=== PATIENT | female | born 1990 | race Caucasian/White ===

== ENCOUNTER 2018-07-16 06:46 | Inpatient (IN) | payer OTHER ==
[2018-07-16] MEDS ORDERED: AMPICILLIN SODIUM 2 GM VIAL ONE (07:57)
[2018-07-16] MEDS ORDERED: DEXTROSE 5%-LACTATED RINGERS 1,000 ML IV SCH (08:00)
[2018-07-16] MEDS ORDERED: AMPICILLIN - 2 GM in SODIUM CHLORIDE 100 ML IVPB ONE (08:02)
[2018-07-16 08:26] LABS: BASO % 0.3 % (0-2.0); EOS % 0.7 % (0-4.5); HEMATOCRIT 37.1 % (32.4-45.2); HEMOGLOBIN 12.7 GM/dL (10.7-15.3); LYMPH % 17.9 % (8-40); MCH 29.2 pg (25.7-33.7); MCHC 34.3 g/dl (32.0-36.0); MEAN PLT VOLUME 9.7 fl (7.5-11.1); MONO % 7.6 % (3.8-10.2); NEUT % 73.5 % (42.8-82.8); PLATELET COUNT 200 K/MM3 (134-434); RBC 4.36 M/mm3 (3.60-5.2); RDW 13.9 % (11.6-15.6); WHITE BLOOD COUNT 9.7 K/mm3 (4.0-10.0)
--- NOTE | 2018-07-16 08:31 | HP ---
Past Medical History - Primary Care Physician PCP:: Gabi Sin - Admission Chief Complaint: 28 yrs , 38.6 weeks brought by ambulence due to SROM , light green color since 6.00AM. no UC felt History of Present Illness: [facility] [place] [facility] , requested pt states her course was uneventful .alltests were normal. she was given yeast infection treatment, vaginal cream for 3 days History Source: Patient Limitations to Obtaining History: No Limitations - Past Medical History HAY BALER: No: Migraine, Seizure Cardiovascular: No: HTN, Murmur Pulmonary: No: Asthma Gastrointestinal: Yes: Other (denies) Hepatobiliary: Yes: Other (denies) Renal/: Yes: Other (denies) ...: 2 ...Spon : 1 (2013-1st trimester d&c was done ) ...EDC by [facility]: 07/24/18 (38.6 weeks ) Heme/Onc: Yes: Other (unknown) Psych: No: Addictions, Anxiety, Bipolar, Depression, Panic, Psychosis, Schizophrenia, Other - Past Surgical History Past Surgical History: Yes: None Hx Myomectomy: No Hx Transabdominal Cerclage: No - Alcohol/Substance Use History of Substance Use: reports: None Home Medications - Allergies Allergies/Adverse Reactions: Allergies Allergy/AdvReac Type Severity Reaction Status Date / Time shellfish derived Allergy Mild Itching Verified 07/16/18 07:49 Physical Exam - Maternity Vital Signs: Selected Entries 07/16/18 07/16/18 07:50 08:00 Temperature 99.1 F Pulse Rate 77 Respiratory 20 Rate Blood Pressure 123/69 Weight 240 lb Constitutional: Yes: Well Nourished, Obese Eyes: Yes: WNL HENT: Yes: WNL Neck: Yes: WNL Cardiovascular: Yes: WNL, Regular Rate and Rhythm Lungs: Clear to auscultation Breast(s): Yes: WNL. No: Mass - Abdominal Exam/OB Fundal Height: 40 Number of Fetuses: Single Presentation: Vertex Contractions: No Regularity: Irregular (3-5-6 min) Intensity: Mild Monitor Mode: External Heart Rate (range): 120-130 Heart Rate Location: [facility] Category: I Accelerations: Non-Uniform Decelerations: None - Vaginal Exam/OB Vaginal Bleediing: No Dilatation (cm): 1-2 Effacement (%): 70 Amniotic Membrane Status: Ruptured Nitrazine Test: Positive Amniotic Fluid: Yes: Meconium Stained Meconium: Light Presentation: Vertex/Position Station: -2 - Physical Exam Musculoskeletal: Yes: WNL Extremities: Yes: WNL. No: Calf Tenderness Edema: LLE: 1+, RLE: 1+ Integumentary: Yes: Tattoos Deep Tendon Reflex Grade: Normal +2 ...Motor Strength: WNL Psychiatric: Yes: WNL, Alert, Oriented Problem List - Problems (1) with 38 completed weeks gestation Code(s): Z3A.38 - 38 WEEKS GESTATION OF (2) SROM (spontaneous rupture of membranes) Code(s): CQJ7873 - (3) with care elsewhere Code(s): Z34.90 - ENCNTR FOR SUPRVSN OF NORMAL , UNSP, UNSP TRIMESTER Qualifiers: Trimester: unspecified trimester Qualified Code(s): Z34.90 - Encounter for supervision of normal , unspecified, unspecified trimester Assessment/Plan 28 yrs , gbs unknown , srom light meconium stained , irregular uc plan GBS prophylaxis with ampicillin trial of vaginal delivery . I handed over care of labor management to Dr Johnson
[2018-07-16 08:40] LABS: ANION GAP 8 MMOL/L (8-16); BLOOD UREA NITROGEN 13 mg/dL (7-18); CALCIUM 8.4 mg/dL (8.5-10.1); CHLORIDE 105 mmol/L (98-107); CO2 24 mmol/L (21-32); CREATININE 0.7 mg/dL (0.55-1.3); GLUCOSE,RANDOM 115 mg/dL (74-106); POTASSIUM 3.9 mmol/L (3.5-5.1); SODIUM 137 mmol/L (136-145)
[2018-07-16 08:43] LABS: INR 0.87 (0.83-1.09); PROTHROMBIN TIME (PATIENT) 10.3 SEC (9.7-13.0)
[2018-07-16 08:46] LABS: ACTIVATED PTT 25.8 SECONDS (25.2-36.5)
[2018-07-16 09:12] VITALS: BMI 41.1
--- NOTE | 2018-07-16 09:38 | PN ---
Progress Note, Labor Vaginal Exam #1 Heart Rate (range): Cat I Dilatation: 2 Effacement (%): 50 Amniotic Membrane Status: Intact Presentation: Vertex/Position Station: -2 Remarks: Assuming care of this patient. Jenn on her own, cervix now 50/2/-2 FHT non reactive still Will cont to closely follow Jade Johnson MD
[2018-07-16 10:55] LABS: COCAINE, UR NEGATIVE ng/ml (CUTOFF=300); METHADONE, UR NEGATIVE ng/ml (CUTOFF=300); OPIATES, URI NEGATIVE ng/ml (CUTOFF=300); PHENCYCLIDINE,URINE NEGATIVE ng/ml (CUTOFF=25); URINE AMPHETAMINES NEGATIVE ng/ml (CUTOFF=500); URINE BARBITURATES NEGATIVE ng/ml (CUTOFF=200); URINE BENZODIAZEPINES NEGATIVE ng/ml (CUTOFF=200)
--- NOTE | 2018-07-16 11:25 | PN ---
Progress Note, Labor Vaginal Exam #2 Labor Exam Date: 07/16/18 Labor Exam Time: 11:24 Heart Rate (range): Cat I Dilatation: 3 Effacement (%): 70 Amniotic Membrane Status: Ruptured Presentation: Vertex/Position Station: -3 Remarks: Unchanged exam Still latent labor Amp x 2 given Consider pitocin augmentation Jade Johnson MD
--- NOTE | 2018-07-16 11:35 | PN ---
Progress Note, Labor Vaginal Exam #2 Labor Exam Date: 07/16/18 Labor Exam Time: 11:30 Heart Rate (range): Cat I Dilatation: 3 Effacement (%): 50 Amniotic Membrane Status: Ruptured Presentation: Vertex/Position Station: -2 Remarks: Cat I tracing Making progress, withhold augmentation at this time Anticipate JERRY Johnson MD
[2018-07-16] MEDS ORDERED: BUTORPHANOL TARTRATE 1 MG/ML VIAL IVPB ONE (11:55)
[2018-07-16] MEDS ORDERED: PROMETHAZINE HCL 25 MG/1 ML VIAL IVPB ONE (11:56)
[2018-07-16] MEDS ORDERED: AMPICILLIN SODIUM 1 GM VIAL ONE ×3 (11:57→20:15)
[2018-07-16] MEDS: AMPICILLIN - 1 GM in SODIUM CHLORIDE 100 ML IVPB SCH ×3 (12:05→20:00)
[2018-07-16] MEDS ORDERED: BUTORPHANOL TARTRATE 1 MG/ML VIAL ONE ×2 (15:16)
[2018-07-16] MEDS ORDERED: PROMETHAZINE HCL 25 MG/1 ML VIAL ONE (15:16)
--- NOTE | 2018-07-16 17:47 | PN ---
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
[2018-07-16] MEDS: ELECTROLYTE-148 SOLN 1,000 ML IV SCH (18:00)
[2018-07-16] MEDS ORDERED: OXYTOCIN 30 UNITS in 0.9% NS 30 UNIT/500 ML INFUS.BAG IVPB ONE (18:02)
[2018-07-16] MEDS: OXYTOCIN 30 UNITS in 0.9% NS 30 UNIT/500 ML INFUS.BAG IVPB SCH (18:05)
[2018-07-16] MEDS ORDERED: BUPIVACAINE HCL/PF 0.25% (2.5MG/ML) 10 ML VIAL ONE (19:18)
[2018-07-16] MEDS ORDERED: FENTANYL/BUPIVACAINE/NS/PF - PCEA - 50 ML DISP.SYRIN EP ONE (19:19)
[2018-07-16] MEDS ORDERED: NALOXONE HCL 0.4 MG/ML VIAL IVPUSH PRN (19:36)
[2018-07-16] MEDS ORDERED: FENTANYL/BUPIVACAINE/NS/PF - PCEA - 50 ML DISP.SYRIN EP SCH (19:45)
--- NOTE | 2018-07-16 19:57 | PN ---
Progress Note, Labor Vaginal Exam #4 Labor Exam Date: 07/16/18 Labor Exam Time: 19:56 Heart Rate (range): Cat I Dilatation: 4 Effacement (%): 90 Amniotic Membrane Status: Ruptured Presentation: Vertex/Position Station: -2 Remarks: Unchanged. Increase pitocin, only at 2mu Will check in one hour, if unchanged, place IUPC and increase pitocin to adequacy Jade Johnson MD
--- NOTE | 2018-07-16 21:20 | PN ---
Progress Note, Labor Vaginal Exam #5 Labor Exam Date: 07/16/18 Heart Rate (range): Cat II Dilatation: 4-5 Effacement (%): 100 Amniotic Membrane Status: Intact Presentation: Vertex/Position Station: -1 Remarks: Difficulty with monitoring during ctx, ? variables vs early decelerations. FSE applied IUPC applied given lack of significant change since 3pm. Will titrate pitocin to adequacy Discussed if no significant change within the next 4 hours despite pitocin, we discussed potential for Delivery Cont to monitor closely Anticipate JERRY Johnson MD
--- NOTE | 2018-07-16 23:19 | PN ---
Progress Note, Labor Vaginal Exam #5 Labor Exam Date: 07/16/18 Labor Exam Time: 23:17 Heart Rate (range): Cat I Dilatation: 10 Effacement (%): 100 Amniotic Membrane Status: Intact Station: 0 Remarks: FHT with one deceleration after 4 ctx, improved thereafter Continue current management Will start pushing in one hour Jade Johnson MD
--- NOTE | 2018-07-16 23:24 | PN ---
Progress Note, Labor Vaginal Exam #6 Labor Exam Date: 07/16/18 Labor Exam Time: 23:23 Heart Rate (range): Cat I Dilatation: 10 Effacement (%): 100 Amniotic Membrane Status: Ruptured Presentation: Vertex/Position Station: +1 Remarks: Pt comfortable Will start pushing within the hour Cat I tracing Anticipate JERRY Johnson MD
[2018-07-16] MEDS ORDERED: OXYTOCIN 20 UNITS in 0.9% NS 20 UNIT/1,000 ML INFUS.BAG IV ONE (23:25)
[2018-07-17] MEDS ORDERED: BISACODYL 10 MG SUPP.RECT RC PRN (00:24)
[2018-07-17] MEDS ORDERED: METHYLERGONOVINE MALEATE 0.2 MG/1 ML AMP IM PRN (00:24)
[2018-07-17] MEDS ORDERED: BENZOCAINE 20% 57 GM BOTTLE TP PRN (00:24)
[2018-07-17] MEDS ORDERED: WITCH HAZEL 50% (TUCKS) 40 PAD/JAR PAD TP PRN (00:24)
[2018-07-17] MEDS ORDERED: BENZOCAINE 28 GM HEMORRHOIDAL OINTMENT TP PRN (00:24)
--- NOTE | 2018-07-17 00:24 | PN ---
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 Epidural anesthesia. 40 weeks gestation. Spontaneous delivery of anterior shoulder. placed on maternal abdomen. FSE removed. Cord clamped and cut. Apgars 9/9. Weight pending. Spontaneous delivery of intact placenta with 3VC. Fundus firm. Perineum inspected, midline first degree laceration repaired with 3-0 vicryl. EBL 250. Mother and baby doing well. Jade Johnson MD
[2018-07-17] MEDS ORDERED: OXYTOCIN 20 UNITS in 0.9% NS 20 UNIT/1,000 ML INFUS.BAG IV SCH (01:00)
[2018-07-17] MEDS: AMPICILLIN - 1 GM in SODIUM CHLORIDE 100 ML IVPB SCH (01:20)
[2018-07-17] MEDS ORDERED: OXYTOCIN 20 UNITS in 0.9% NS 20 UNIT/1,000 ML INFUS.BAG IV ONE (02:03)
[2018-07-17] MEDS: ACETAMINOPHEN 325 MG TABLET (FP) PO PRN ×4 (02:56→17:34)
[2018-07-17] MEDS: IBUPROFEN 600 MG TABLET (FP) PO PRN ×4 (02:57→17:34)
[2018-07-17] MEDS: OXYTOCIN 30 UNITS in 0.9% NS 30 UNIT/500 ML INFUS.BAG IVPB SCH (20:38)
[2018-07-17] MEDS: ELECTROLYTE-148 SOLN 1,000 ML IV SCH (20:38)
[2018-07-18] MEDS: IBUPROFEN 600 MG TABLET (FP) PO PRN ×3 (01:13→21:31)
[2018-07-18] MEDS: ACETAMINOPHEN 325 MG TABLET (FP) PO PRN ×3 (01:13→21:30)
--- NOTE | 2018-07-18 06:25 | PN ---
Post Progress Note - Subjective Subjective: c/o pain in upper body chest, arms & upper abdomen , posible due to pushing muscular pain . c/o uterine cramps Post Day: 1 Type of Delivery: Vital Signs: Vital Signs Temperature 98.1 F 07/17/18 22:00 Pulse Rate 80 07/17/18 22:00 Respiratory Rate 18 07/17/18 22:00 Blood Pressure 111/60 07/17/18 22:00 O2 Sat by Pulse Oximetry (%) 100 07/17/18 01:15 Breast Exam: Yes: Soft, Other (attempting BF, no milk yet , Bottle feeding as well ). No: Engorged Uterus: Yes: Fundus Firm, Fundus below umbilicus, Non-tender, Other (obese abdomen ) Lochia: Yes: Rubra Lochia, amount: Moderate Extremities: Yes: Calves non-tender, Edema Perineum: Yes: Episiotomy (perinel soreness) Activity: Ambulating - Labs Labs: CBC WBC 9.7 K/mm3 (4.0-10.0) 07/16/18 07:40 RBC 4.36 M/mm3 (3.60-5.2) 07/16/18 07:40 Hgb 12.7 GM/dL (10.7-15.3) 07/16/18 07:40 Hct 37.1 % (32.4-45.2) 07/16/18 07:40 MCV 85.0 fl (80-96) 07/16/18 07:40 MCH 29.2 pg (25.7-33.7) 07/16/18 07:40 MCHC 34.3 g/dl (32.0-36.0) 07/16/18 07:40 RDW 13.9 % (11.6-15.6) 07/16/18 07:40 Plt Count 200 K/MM3 (134-434) 07/16/18 07:40 MPV 9.7 fl (7.5-11.1) 07/16/18 07:40 Absolute Neuts (auto) 7.1 K/mm3 (1.5-8.0) 07/16/18 07:40 Neutrophils % 73.5 % (42.8-82.8) 07/16/18 07:40 Lymphocytes % 17.9 % (8-40) 07/16/18 07:40 Monocytes % 7.6 % (3.8-10.2) 07/16/18 07:40 Eosinophils % 0.7 % (0-4.5) 07/16/18 07:40 Basophils % 0.3 % (0-2.0) 07/16/18 07:40 Nucleated RBC % 0 % (0-0) 07/16/18 07:40 Problem List - Problems (1) with 38 completed weeks gestation Code(s): Z3A.38 - 38 WEEKS GESTATION OF (2) SROM (spontaneous rupture of membranes) Code(s): GHE1249 - (3) with care elsewhere Code(s): Z34.90 - ENCNTR FOR SUPRVSN OF NORMAL , UNSP, UNSP TRIMESTER Qualifiers: Trimester: unspecified trimester Qualified Code(s): Z34.90 - Encounter for supervision of normal , unspecified, unspecified trimester (4) Normal vaginal delivery Code(s): O80 - ENCOUNTER FOR FULL-TERM UNCOMPLICATED DELIVERY (5) Encounter for assessment Code(s): Z39.2 - ENCOUNTER FOR ROUTINE FOLLOW-UP Assessment/Plan stable mobilise the body , deep breathing . pp cbc today discharge tomorrow.
[2018-07-18 07:27] LABS: BASO % 0.3 % (0-2.0); EOS % 0.9 % (0-4.5); HEMATOCRIT 32.5 % (32.4-45.2); HEMOGLOBIN 10.9 GM/dL (10.7-15.3); LYMPH % 24.6 % (8-40); MCH 28.3 pg (25.7-33.7); MCHC 33.5 g/dl (32.0-36.0); MEAN CELL VOLUME 84.5 fl (80-96); MEAN PLT VOLUME 8.9 fl (7.5-11.1); MONO % 9.6 % (3.8-10.2); NEUT % 64.6 % (42.8-82.8); PLATELET COUNT 156 K/MM3 (134-434); RBC 3.84 M/mm3 (3.60-5.2); RDW 14.3 % (11.6-15.6); WHITE BLOOD COUNT 11.4 K/mm3 (4.0-10.0)
[2018-07-18] MEDS ORDERED: SENNOSIDES/DOCUSATE COMBO (SENNA PLUS) TABLET (UD) PO PRN (22:00)
[2018-07-19 08:41] VITALS: BP 124/75; PULSE 67; TEMP 98.3
--- NOTE | 2018-07-19 10:04 | DS ---
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 sutures intact, epi wound healing perineal soreness) Breast(s): Yes: WNL (BF, breast not engorged) Musculoskeletal: Yes: WNL, Other (upper body pain less today , feeling better by doing stretches) Extremities: Yes: WNL. No: Calf Tenderness Edema: LLE: 1+, RLE: 1+ Integumentary: Yes: WNL, Tattoos Neurological: Yes: WNL ...Motor Strength: WNL Psychiatric: Yes: WNL Labs: CBC, BMP 07/18/18 07:00 07/16/18 07:40 Delivery - Delivery Vaginal Delivery: Spontaneous Type of Anesthesia: Epidural Episiotomy/Laceration: Midline, 1st degree EBL (cc): 250 Delivery, Single - Stages of Labor Date 1st Stage Initiatied: 07/16/18 Time 1st Stage Initiated: 15:20 Date 2nd Stage Initiated: 07/16/18 Time 2nd Stage Initiated: 23:40 Date of Delivery: 07/17/18 Time of Delivery: 00:10 Time Placenta Delivered: 00:14 Placenta: Yes: Spontaneous - Condition of Infant Molding 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 discharge today Discharge Summary Reason For Visit: LABOR Current Active Problems Encounter for assessment (Acute) Normal vaginal delivery (Acute) with 38 completed weeks gestation (Acute) with care elsewhere (Acute) SROM (spontaneous rupture of membranes) (Acute) Condition: Stable - Instructions Diet, Activity, Other Instructions: Regular Diet Referrals: Richelle Johnson MD [Staff Physician] - Disposition: HOME - Home Medications Comprehensive Discharge Medication List: Ambulatory Orders Calcium Carbonate [Calcium] 200 mg PO DAILY 07/16/18 Folic Acid 1 mg PO DAILY 07/16/18 Prenat 115/Iron Fum/Folic/Dss [ 19 Tablet] 1 tab PO DAILY 07/16/18 Ibuprofen 600 mg PO Q6H PRN #30 tablet 07/18/18
== END 2018-07-19 13:20 | disposition home or self-care (01) | DRG 560 ==
LOC: JLDR 06:46 → J3W 07-17 02:10
PROVIDERS: ADMIT Obstetrics & Gynecology; ATTEND Obstetrics & Gynecology
PROC: 0HQ9XZZ Repair Perineum Skin, External Approach (ICD-10-PCS; principal; 2018-07-17)
PROC: 10E0XZZ Delivery of Products of Conception, External Approach (ICD-10-PCS; 2018-07-17)
DX: O70.0 First degree perineal laceration during delivery (principal); O99.214 Obesity complicating childbirth; E66.8 Other obesity; Z3A.38 38 weeks gestation of pregnancy; Z37.0 Single live birth
CPT/HCPCS: 36415; 59409; 80048; 80307; 85025; 85610; 85730; 86593; 86704; 86850; 86900; 86901; 87389